=== PATIENT | male | born 1990 | race Caucasian/White ===

== ENCOUNTER 2021-01-15 11:13 | Outpatient (CLI) | payer OTHER ==
--- NOTE | 2021-01-15 12:27 | Cat Scan Report ---
CT HEAD WITHOUT CONTRAST INDICATION / CLINICAL INFORMATION: MAIN. TECHNIQUE: Axial imaging performed from the skull apex through the skull base without the use of cont rast. Sagittal and coronal reformatted images. All CT scans at this location are performed using CT dose reduction for ALARA by means of automated exposure control. COMPARISON: None available. FINDINGS: CEREBRAL PARENCHYMA: No significant abnormality. No acute territorial infarct. HEMORRHAGE: None. EXTRA-AXIAL SPACES: Normal in size and morphology for the patient's age. VENTRICULAR SYSTEM: Normal in size and morphology for the patient's age. MIDLINE SHIFT OR HERNIATION: None. CEREBELLUM / BRAINSTEM: No significant abnormality. CALVARIUM: No significant abnormality. ORBITS: Normal as visualized. PARANASAL SINUSES / MASTOID AIR CELLS: Approximate 2 cm mucous retention cyst is noted in the inferio r left maxillary sinus. The remaining sinuses and mastoid air cells are well-aerated. SOFT TISSUES of HEAD: No significant abnormality. ADDITIONAL FINDINGS: None. IMPRESSION: No acute intracranial abnormality. Left maxillary sinus mucous retention cyst. Signer Name: Minesh Goetz Jr, MD Signed: 01/15/2021 12:21 PM Workstation Name: [id number]
== END 2021-01-15 11:14 | disposition home or self-care (01) ==
LOC: CT 11:13
PROVIDERS: ATTEND Specialist
DX: C85.81 Other specified types of non-Hodgkin lymphoma, lymph nodes of head, face, and neck (principal); J34.1 Cyst and mucocele of nose and nasal sinus
CPT/HCPCS: 70450